=== PATIENT | male | born 1965 | race African-American/Black ===

== ENCOUNTER 2018-06-30 19:02 | Inpatient (IN) | payer OTHER ==
[2018-06-30 19:52] VITALS: BMI 30.4
--- NOTE | 2018-06-30 20:32 | HP ---
COWS - Scale Resting Pulse: 0= [place] 80 or Below Sweatin= Chills/Flushing Restless Observation: 1= Difficult to Sit Still Pupil Size: 1= Pupils >than Normal Bone or Joint Aches: 1= Mild Discomfort Runny Nose/ Eye Tearin= Runny Nose/Eyes GI Upset > 30mins: 1= Stomach Cramp Tremor Observation: 1= Tremor [place], Not Seen Yawning Observation: 2= >3x During Session Anxiety or Irritability: 2=Irritable/Anxious Goose Flesh Skin: 0=Smooth Skin COWS Score: 12 Admission [facility] Chief Complaint: opioid withdrawal symptoms Allergies/Adverse Reactions: Allergies Allergy/AdvReac Type Severity Reaction Status Date / Time No Known Allergies Allergy Verified 06/30/18 20:41 History of Present Illness: 52 yo male with hx of nicotine, crack/cocaine, THC, heroin (nasal) dependence is here seeking detox. Last detox 20 years ago. Reports left his [facility] at [facility] three months ago in which he was receiving 140 mg daily. PMHX: Pre- Diabetes, schizophrenia. Denies suicidal / homicidal ideation. Reports hx of blackouts with last episode two months ago. Denies hx of seizures or overdose. Longest period of sobriety 5 years while incarcerated. Exam Limitations: No Limitations - Ebola screening Have you traveled outside of the country in the last 21 days: No (N) Have you had contact with anyone from an Ebola affected area: No Have you been sick,other than usual withdrawal symptoms: No Do you have a fever: No - Review of Systems Constitutional: Chills, Loss of Appetite, Changes in sleep, Unintentional Wgt. Loss EENT: reports: Nose Congestion Respiratory: reports: No Symptoms reported Cardiac: reports: No Symptoms Reported GI: reports: Poor Appetite, Poor Fluid Intake, Indigestion : reports: No Symptoms Reported Musculoskeletal: reports: Joint Pain Integumentary: reports: No Symptoms Reported Neuro: reports: No Symptoms reported Endocrine: reports: Increased Thirst Hematology: reports: No Symptoms Reported Psychiatric: reports: Orientated x3, Agitated, Anxious Other Systems: Reviewed and Negative Patient History - Patient Medical History Hx Anemia: No Hx Asthma: No Hx Chronic Obstructive Pulmonary Disease (COPD): No Hx Cancer: No Hx Cardiac Disorders: No Hx Congestive Heart Failure: No Hx Hypertension: No Hx Hypercholesterolemia: No Hx Pacemaker: No HX Cerebrovascular Accident: No Hx Seizures: No Hx Dementia: No Hx Diabetes: Yes (Pre-Diabetes diet controlled ) Hx Gastrointestinal Disorders: No Hx Liver Disease: No Hx Genitourinary Disorders: No Hx Sexually Transmitted Disorders: Yes (Clamydia ) Hx Renal Disease (ESRD): No Hx Thyroid Disease: No Hx Human Immunodeficiency Virus (HIV): No (2014 negative ) Hx Hepatitis C: No Hx Depression: No Hx Suicide Attempt: No Hx Bipolar Disorder: No Hx Schizophrenia: Yes - Patient Surgical History Past Surgical History: No - PPD History Previous Implant?: No (tx with INH 2000) Documented Results: Positive w/o proof PPD to be Administered?: No - Smoking Cessation Smoking history: Current some day smoker Have you smoked in the past 12 months: Yes Aproximately how many cigarettes per day: 20 Hx Chewing Tobacco Use: No Initiated information on smoking cessation: Yes 'Breaking Loose' booklet given: 06/30/18 - Substance & Tx. History Hx Alcohol Use: No Hx Substance Use: Yes Substance Use Type: Cocaine, Heroin, Marijuana Hx Substance Use Treatment: Yes (20 years ) - Substances Abused Heroin Route: Inhalation Frequency: Daily Amount used: 1 bundle Age of first use: 17 Date of Last Use: 06/29/18 Crack Route: Smoking Frequency: Daily Amount used: $200 Age of first use: 21 Date of Last Use: 06/30/18 Marijuana/Hashish Route: Smoking Frequency: 1-2 times per week Amount used: 1/2 blunt Age of first use: 17 Date of Last Use: 06/23/18 Family Disease History - Family Disease History Family Disease History: Diabetes: Mother Admission Physical Exam [facility] - Vital Signs Vital Signs: Vital Signs - 24 hr 06/30/18 19:51 Temperature 98.2 F Pulse Rate 67 Respiratory 19 Rate Blood Pressure 132/70 - Physical General Appearance: Yes: Disheveled, Mild Distress, Irritable, Sweating HEENTM: Yes: EOMI, Hearing grossly Normal, Normal ENT Inspection, Normocephalic , Normal Voice, ANASTASIIA, Pharynx Normal, Tm's normal Respiratory: Yes: Within Normal Limits Neck: Yes: Within Normal Limits Breast: Yes: Breast Exam Deferred Cardiology: Yes: Regular Rhythm, Regular Rate Abdominal: Yes: Normal Bowel Sounds, Non Tender, Flat, Soft Genitourinary: Yes: Within Normal Limits Back: Yes: Normal Inspection Musculoskeletal: Yes: full range of Motion, Gait Steady, Pelvis Stable Neurological: Yes: oxygen system tester II-XII NML intact, Fully Oriented, Alert, Motor Strength 5/5, Depressed Affect Integumentary: Yes: Normal Color, Warm, Diaphoresis Lymphatic: Yes: Within Normal Limits - Diagnostic (1) Psychiatric disorder Current Visit: Yes Status: Suspected (2) Opioid dependence with withdrawal Current Visit: Yes Status: Acute (3) Cocaine dependence Current Visit: Yes Status: Acute Qualifiers: Substance use status: uncomplicated Qualified Code(s): F14.20 - Cocaine dependence, uncomplicated (4) Marijuana dependence Current Visit: Yes Status: Acute (5) Nicotine dependence Current Visit: Yes Status: Acute Qualifiers: Nicotine product type: cigarettes (6) History of tuberculosis exposure Current Visit: Yes Status: Chronic Comment: tx with INH 2001 (7) Prediabetes Current Visit: Yes Status: Chronic Cleared for Admission [facility] - Detox or Rehab [facility] Level of Care: Medically Managed Detox Regimen/Protocol: Methadone [facility] Breath Alcohol Content Breath Alcohol Content: 0 Urine Drug Screen - Results Drug Screen Negative: No Urine Drug Screen Results: LILLIANA-Cocaine, OPI-Opiates
[2018-06-30] MEDS ORDERED: METHADONE HCL 10 MG TABLET (FOR DETOX USE ONLY) PO ONE ×2 (20:41→23:00)
[2018-06-30] MEDS ORDERED: MAGNESIUM HYDROX 2400MG/30ML ORAL SUSPENSION 30 ML CUP PO PRN (20:41)
[2018-06-30] MEDS ORDERED: P-EPHED 60MG/TRIPROLIDI 2.5MG TABLET PO PRN (20:41)
[2018-06-30] MEDS ORDERED: MENTHOL/PHENOL 1 EACH UD MM PRN (20:41)
[2018-06-30] MEDS ORDERED: MAG HYDROX/AL HYDROX/SIMETH 30 ML UNIT-DOSE CUP PO PRN (20:41)
[2018-06-30] MEDS ORDERED: MAGNESIUM CITRATE 300 ML BOTTLE PO PRN (20:41)
[2018-06-30] MEDS ORDERED: ACETAMINOPHEN 325 MG TABLET (FP) PO PRN (20:41)
[2018-06-30] MEDS ORDERED: IBUPROFEN 400 MG TABLET (FP) PO PRN (20:41)
[2018-06-30] MEDS ORDERED: LOPERAMIDE HCL 2 MG CAPSULE PO PRN (20:41)
[2018-06-30] MEDS ORDERED: guaiFENesin/D-METHORPHAN HB 10 ML UNIT-DOSE CUPS PO PRN (20:41)
[2018-06-30] MEDS ORDERED: MELATONIN 5 MG TABLETS PO PRN (22:00)
[2018-06-30] MEDS: THIAMINE HCL 100 MG TABLET (FP) PO SCH (22:49)
[2018-06-30] MEDS: diazePAM 5 MG TABLET PO PRN (22:49)
[2018-07-01 02:56] LABS: URINE APPEARANCE CLEAR; URINE BILIRUBIN NEGATIVE (<2.0 mg/dL); URINE COLOR LTYELLOW; URINE GLUCOSE (UA) NEGATIVE (NEGATIVE); URINE KETONE NEGATIVE (NEGATIVE); URINE LEUK ESTERASE NEGATIVE (NEGATIVE); URINE NITRITE NEGATIVE (NEGATIVE); URINE PROTEIN NEGATIVE (NEGATIVE); URINE UROBILINOGEN NEGATIVE mg/dL (0.2-1.0)
--- NOTE | 2018-07-01 09:43 | PN ---
BHS COWS - Scale Resting Pulse: 0= [place] 80 or Below Sweatin= Chills/Flushing Restless Observation: 1= Difficult to Sit Still Pupil Size: 1= Pupils >than Normal Bone or Joint Aches: 1= Mild Discomfort Runny Nose/ Eye Tearin= Nasal Congestion GI Upset > 30mins: 1= Stomach Cramp Tremor Observation of Outstretched Hands: 1= Tremor [place], Not Seen Yawning Observation: 0= None Anxiety or Irritability: 1=Feels Anxious/Irritable Goose Flesh Skin: 0=Smooth Skin COWS Score: 8 BHS Progress Note (SOAP) Subjective: interrupted sleep, sweats, Objective: 07/01/18 09:38 Vital Signs Temperature 97.9 F 07/01/18 09:22 Pulse Rate 58 L 07/01/18 09:22 Respiratory Rate 18 07/01/18 09:22 Blood Pressure 144/86 07/01/18 09:22 O2 Sat by Pulse Oximetry (%) Laboratory Tests 06/30/18 07/01/18 22:57 08:00 POC Glucometer 80 Urine Color Ltyellow Urine Appearance Clear Urine pH 8.0 Ur Specific [place] 1.017 Urine Protein Negative Urine Glucose (UA) Negative Urine Ketones Negative Urine Blood Negative Urine Nitrite Negative Urine Bilirubin Negative Urine Urobilinogen Negative Ur Leukocyte Esterase Negative pending labs Assessment: 07/01/18 09:38 withdrawal sx's Plan: cont. detox increase fluids f/up pending labs
[2018-07-01] MEDS ORDERED: METHADONE HCL 10 MG TABLET (FOR DETOX USE ONLY) PO ONE (10:00)
--- NOTE | 2018-07-01 10:18 | CONSULT ---
[facility] Psychiatric Consult - Data Date of interview: 07/01/18 Admission source: [facility] Identifying data: Patient is a 52 year old male, father of two, domiciled, and unemployed (denies receiving financial assistance). This is patient's first admission to detox at [facility]. Pt. admitted to for alcohol, cocaine and opiate dependence. Substance Abuse History: - Smoking Cessation. Smoking history: Current some day smoker. Have you smoked in the past 12 months: Yes. Aproximately how many cigarettes per day: 20. Hx Chewing Tobacco Use: No. Initiated information on smoking cessation: Yes. 'Breaking Loose' booklet given: 06/30/18. - Substance & Tx. History. Hx Alcohol Use: No. Hx Substance Use: Yes. Substance Use Type : Cocaine, Heroin, Marijuana. Hx Substance Use Treatment: Yes (20 years ). - Substances Abused. Heroin. Route: Inhalation. Frequency: Daily. Amount used: 1 bundle. Age of first use: 17. Date of Last Use: 06/29/18. Crack. Route: Smoking. Frequency: Daily. Amount used: $200. Age of first use: 21. Date of Last Use: 06/30/18. Marijuana/Hashish. Route: Smoking. Frequency: 1-2 times per week. Amount used: 1/2 blunt. Age of first use: 17. Date of Last Use: 06/23/18 Medical History: diabetes Psychiatric History: Patient unable to provide a clear psychiatric history. Patient denies h/o psychiatric hospitalization. He reports being treated with abilify 20mg and Trazodone (unknown dose) while he was incarcerated from 2011- 2013. Mr. Collazo reports being diagnosed with paranoid schizophrenia 2 years ago (?). States he attempted to receive outpatient psychiatric care from [facility] five months ago but was told by the psychiatrist that due to his high dose of methadone he would not be started on psychotrophic medications. As per current orders patient is on a methadone taper. Mr. Clolazo is refusing to restart abilify but is agreeable to accepting trazodone for insomnia. Patient currently denies auditory/visual hallucinations but does report h/o auditory hallucinations when not using substances. No psychotic or manic symptoms noted. Physical/Sexual Abuse/Trauma History: denies. Mental Status Exam - Mental Status Exam Alert and Oriented to: Time, Place, Person Cognitive Function: Good Patient Appearance: Well Groomed Mood: Euthymic Affect: Mood Congruent Patient Behavior: Cooperative Speech Pattern: Appropriate Voice Loudness: Moderately Soft/Quiet Thought Process: Intact, Goal Oriented Thought Disorder: Not Present Hallucinations: Denies Suicidal Ideation: Denies Homicidal Ideation: Denies Insight/Judgement: Poor Sleep: Poorly Appetite: Fair Muscle strength/Tone: Normal Gait/Station: Normal Psychiatric Findings - Problem List ([place] 1, 2,3) (1) Nicotine dependence Current Visit: Yes Status: Chronic Qualifiers: Nicotine product type: cigarettes (2) Cocaine dependence Current Visit: Yes Status: Chronic Qualifiers: Substance use status: uncomplicated Qualified Code(s): F14.20 - Cocaine dependence, uncomplicated (3) Opioid dependence with withdrawal Current Visit: Yes Status: Acute (4) Substance induced mood disorder Current Visit: Yes Status: Acute (5) Substance-induced sleep disorder Current Visit: Yes Status: Acute (6) Schizophrenia Current Visit: No Status: Suspected - Initial Treatment Plan Initial Treatment Plan: Psychoeducation provided. Detoxification in progress. Will order trazodone 50mg qhs. Benefits and side effects discussed. Patient made aware of the risk of priapism when accepting trazodone. Verbal consent given.
[2018-07-01 10:22] LABS: HEMATOCRIT 43.9 % (35.4-49); HEMOGLOBIN 14.6 GM/dL (11.7-16.9); MCH 30.1 pg (25.7-33.7); MCHC 33.2 g/dl (32.0-35.9); MEAN CELL VOLUME 90.7 fl (80-96); MEAN PLT VOLUME 7.9 fl (7.5-11.1); PLATELET COUNT 214 K/MM3 (134-434); RBC 4.84 M/mm3 (4.00-5.60); RDW 14.5 % (11.9-15.9); WHITE BLOOD COUNT 6.3 K/mm3 (4.0-10.0)
[2018-07-01] MEDS: diazePAM 5 MG TABLET PO PRN ×2 (10:22→22:14)
[2018-07-01] MEDS: PRENATAL VITAMINS W/ FOLIC ACID TABLET (FP) PO SCH (10:22)
[2018-07-01 10:42] LABS: CHLORIDE 111 mmol/L (98-107); POTASSIUM 4.3 mmol/L (3.5-5.1); SODIUM 144 mmol/L (136-145)
[2018-07-01 11:23] LABS: ALBUMIN 3.2 g/dl (3.4-5.0); ALK PHOS 69 U/L (45-117); ANION GAP 6 MMOL/L (8-16); BILIRUBIN,TOTAL 0.6 mg/dL (0.2-1); BLOOD UREA NITROGEN 12 mg/dL (7-18); CALCIUM 8.7 mg/dL (8.5-10.1); CO2 27 mmol/L (21-32); CREATININE 1.2 mg/dL (0.55-1.3); GLUCOSE,RANDOM 82 mg/dL (74-106); SGOT/AST 19 U/L (15-37); SGPT/ALT 17 U/L (13-61); TOT PROT 6.2 g/dl (6.4-8.2)
--- NOTE | 2018-07-01 12:59 | EKG ---
Test Reason : Blood Pressure : / mmHG Vent. Rate : 062 BPM Atrial Rate : 062 BPM P-R Int : 160 ms QRS Dur : 076 ms QT Int : 392 ms P-R-T Axes : 063 058 032 degrees QTc Int : 397 ms NORMAL SINUS RHYTHM POSSIBLE LEFT ATRIAL ENLARGEMENT LEFT VENTRICULAR HYPERTROPHY ABNORMAL ECG NO PREVIOUS ECGS AVAILABLE Confirmed by BRADLEY LYON MD ([id number]) on 07/01/2018 12:59:00 PM Referred By: Confirmed By:BRADLEY LYON MD
[2018-07-01] MEDS: THIAMINE HCL 100 MG TABLET (FP) PO SCH (22:14)
[2018-07-01] MEDS: traZODone HCL 50 MG TABLET (FP) PO SCH (22:15)
[2018-07-02] MEDS ORDERED: METHADONE HCL 5 MG TABLET (FOR DETOX USE ONLY) PO ONE (10:00)
--- NOTE | 2018-07-02 10:41 | PN ---
BHS COWS - Scale Resting Pulse: 0= [place] 80 or Below Sweatin= Chills/Flushing Restless Observation: 1= Difficult to Sit Still Pupil Size: 1= Pupils >than Normal Bone or Joint Aches: 2= Severe Diffuse Aches Runny Nose/ Eye Tearin= Nasal Congestion GI Upset > 30mins: 1= Stomach Cramp Tremor Observation of Outstretched Hands: 2= Slight Tremor Visible Yawning Observation: 1= 1-2x During Session Anxiety or Irritability: 1=Feels Anxious/Irritable Goose Flesh Skin: 0=Smooth Skin COWS Score: 11 BHS Progress Note (SOAP) Subjective: body ache tremor sweat restlessness joints pain Objective: 07/02/18 10:40 Vital Signs Temperature 9707 F H 07/02/18 09:53 Pulse Rate 64 07/02/18 09:53 Respiratory Rate 18 07/02/18 09:53 Blood Pressure 144/79 07/02/18 09:53 O2 Sat by Pulse Oximetry (%) Laboratory Last Values WBC 6.3 K/mm3 (4.0-10.0) 07/01/18 07:00 RBC 4.84 M/mm3 (4.00-5.60) 07/01/18 07:00 Hgb 14.6 GM/dL (11.7-16.9) 07/01/18 07:00 Hct 43.9 % (35.4-49) 07/01/18 07:00 MCV 90.7 fl (80-96) 07/01/18 07:00 MCH 30.1 pg (25.7-33.7) 07/01/18 07:00 MCHC 33.2 g/dl (32.0-35.9) 07/01/18 07:00 RDW 14.5 % (11.9-15.9) 07/01/18 07:00 Plt Count 214 K/MM3 (134-434) 07/01/18 07:00 MPV 7.9 fl (7.5-11.1) 07/01/18 07:00 Sodium 144 mmol/L (136-145) 07/01/18 07:00 Potassium 4.3 mmol/L (3.5-5.1) 07/01/18 07:00 Chloride 111 mmol/L (98-107) H 07/01/18 07:00 Carbon Dioxide 27 mmol/L (21-32) 07/01/18 07:00 Anion Gap 6 MMOL/L (8-16) L 07/01/18 07:00 BUN 12 mg/dL (7-18) 07/01/18 07:00 Creatinine 1.2 mg/dL (0.55-1.3) 07/01/18 07:00 Creat Clearance w eGFR > 60 (>60) 07/01/18 07:00 POC Glucometer 94 UNITS (80-120) 07/02/18 06:43 Random Glucose 82 mg/dL (74-106) 07/01/18 07:00 Calcium 8.7 mg/dL (8.5-10.1) 07/01/18 07:00 Total Bilirubin 0.6 mg/dL (0.2-1) 07/01/18 07:00 AST 19 U/L (15-37) 07/01/18 07:00 ALT 17 U/L (13-61) 07/01/18 07:00 Alkaline Phosphatase 69 U/L (45-117) 07/01/18 07:00 Total Protein 6.2 g/dl (6.4-8.2) L 07/01/18 07:00 Albumin 3.2 g/dl (3.4-5.0) L 07/01/18 07:00 Urine Color Ltyellow 06/30/18 22:57 Urine Appearance Clear 06/30/18 22:57 Urine pH 8.0 (5.0-8.0) 06/30/18 22:57 Ur Specific [place] 1.017 (1.001-1.035) 06/30/18 22:57 Urine Protein Negative (NEGATIVE) 06/30/18 22:57 Urine Glucose (UA) Negative (NEGATIVE) 06/30/18 22:57 Urine Ketones Negative (NEGATIVE) 06/30/18 22:57 Urine Blood Negative (NEGATIVE) 06/30/18 22:57 Urine Nitrite Negative (NEGATIVE) 06/30/18 22:57 Urine Bilirubin Negative (<2.0 mg/dL) 06/30/18 22:57 Urine Urobilinogen Negative mg/dL (0.2-1.0) 06/30/18 22:57 Ur Leukocyte Esterase Negative (NEGATIVE) 06/30/18 22:57 RPR Titer Nonreactive (NONREACTIVE) 07/01/18 07:00 HIV 1&2 Antibody Screen Negative 07/01/18 07:00 HIV P24 Antigen Negative 07/01/18 07:00 lab noted Assessment: 07/02/18 10:40 withdrawal sx Plan: continue detox
[2018-07-02] MEDS: diazePAM 5 MG TABLET PO PRN ×2 (10:52→22:10)
[2018-07-02] MEDS: PRENATAL VITAMINS W/ FOLIC ACID TABLET (FP) PO SCH (10:52)
[2018-07-02] MEDS: THIAMINE HCL 100 MG TABLET (FP) PO SCH (22:09)
[2018-07-02] MEDS: traZODone HCL 50 MG TABLET (FP) PO SCH (22:09)
[2018-07-03] MEDS ORDERED: METHADONE HCL 5 MG TABLET (FOR DETOX USE ONLY) PO ONE (10:00)
[2018-07-03] MEDS: PRENATAL VITAMINS W/ FOLIC ACID TABLET (FP) PO SCH (10:14)
[2018-07-03] MEDS: diazePAM 5 MG TABLET PO PRN (10:14)
--- NOTE | 2018-07-03 10:51 | PN ---
[facility] Progress Note Note: PATIENT PRESENTS IN DETOX FOR OPIOD WITHDRAWAL. REPORTS HE FEEL OKAY THIS MORNING BUT "A LITTLE TIRED". Laboratory Tests 06/30/18 07/01/18 07/01/18 22:57 07:00 07:00 WBC 6.3 RBC 4.84 Hgb 14.6 Hct 43.9 MCV 90.7 MCH 30.1 MCHC 33.2 RDW 14.5 Plt Count 214 MPV 7.9 Sodium 144 Potassium 4.3 Chloride 111 H Carbon Dioxide 27 Anion Gap 6 L BUN 12 Creatinine 1.2 Creat Clearance w eGFR > 60 POC Glucometer Random Glucose 82 Calcium 8.7 Total Bilirubin 0.6 AST 19 ALT 17 Alkaline Phosphatase 69 Total Protein 6.2 L Albumin 3.2 L Urine Color Ltyellow Urine Appearance Clear Urine pH 8.0 Ur Specific [place] 1.017 Urine Protein Negative Urine Glucose (UA) Negative Urine Ketones Negative Urine Blood Negative Urine Nitrite Negative Urine Bilirubin Negative Urine Urobilinogen Negative Ur Leukocyte Esterase Negative RPR Titer HIV 1&2 Antibody Screen HIV P24 Antigen 07/01/18 07/01/18 07/01/18 07:00 07:00 08:00 WBC RBC Hgb Hct MCV MCH MCHC RDW Plt Count MPV Sodium Potassium Chloride Carbon Dioxide Anion Gap BUN Creatinine Creat Clearance w eGFR POC Glucometer 80 Random Glucose Calcium Total Bilirubin AST ALT Alkaline Phosphatase Total Protein Albumin Urine Color Urine Appearance Urine pH Ur Specific [place] Urine Protein Urine Glucose (UA) Urine Ketones Urine Blood Urine Nitrite Urine Bilirubin Urine Urobilinogen Ur Leukocyte Esterase RPR Titer Nonreactive HIV 1&2 Antibody Screen Negative HIV P24 Antigen Negative 07/02/18 07/03/18 06:43 06:57 WBC RBC Hgb Hct MCV MCH MCHC RDW Plt Count MPV Sodium Potassium Chloride Carbon Dioxide Anion Gap BUN Creatinine Creat Clearance w eGFR POC Glucometer 94 96 Random Glucose Calcium Total Bilirubin AST ALT Alkaline Phosphatase Total Protein Albumin Urine Color Urine Appearance Urine pH Ur Specific [place] Urine Protein Urine Glucose (UA) Urine Ketones Urine Blood Urine Nitrite Urine Bilirubin Urine Urobilinogen Ur Leukocyte Esterase RPR Titer HIV 1&2 Antibody Screen HIV P24 Antigen PE: ALERT AND ORIENTED SKIN WARM AND DRY CAR S1S2 RESP: CTA BL GI SOFT, BS+, NT A/P WITHDRAWAL SYNDROME CONTINUE DETOX PER PROTOCOL
[2018-07-03] MEDS: THIAMINE HCL 100 MG TABLET (FP) PO SCH (22:32)
[2018-07-03] MEDS: traZODone HCL 50 MG TABLET (FP) PO SCH (22:32)
[2018-07-04] MEDS ORDERED: METHADONE HCL 10 MG TABLET (FOR DETOX USE ONLY) PO ONE (10:00)
--- NOTE | 2018-07-04 10:15 | PN ---
BHS Progress Note (SOAP) Subjective: Interrupted sleep, muscle aches, irritability Objective: 07/04/18 10:15 Vital Signs - 8 hr 07/04/18 07/04/18 07/04/18 03:30 06:00 09:55 Temperature 97.3 F L 97.5 F L Pulse Rate 54 L 55 L Respiratory 18 18 16 Rate Blood Pressure 122/74 107/65 Laboratory Last Values WBC 6.3 K/mm3 (4.0-10.0) 07/01/18 07:00 RBC 4.84 M/mm3 (4.00-5.60) 07/01/18 07:00 Hgb 14.6 GM/dL (11.7-16.9) 07/01/18 07:00 Hct 43.9 % (35.4-49) 07/01/18 07:00 MCV 90.7 fl (80-96) 07/01/18 07:00 MCH 30.1 pg (25.7-33.7) 07/01/18 07:00 MCHC 33.2 g/dl (32.0-35.9) 07/01/18 07:00 RDW 14.5 % (11.9-15.9) 07/01/18 07:00 Plt Count 214 K/MM3 (134-434) 07/01/18 07:00 MPV 7.9 fl (7.5-11.1) 07/01/18 07:00 Sodium 144 mmol/L (136-145) 07/01/18 07:00 Potassium 4.3 mmol/L (3.5-5.1) 07/01/18 07:00 Chloride 111 mmol/L (98-107) H 07/01/18 07:00 Carbon Dioxide 27 mmol/L (21-32) 07/01/18 07:00 Anion Gap 6 MMOL/L (8-16) L 07/01/18 07:00 BUN 12 mg/dL (7-18) 07/01/18 07:00 Creatinine 1.2 mg/dL (0.55-1.3) 07/01/18 07:00 Creat Clearance w eGFR > 60 (>60) 07/01/18 07:00 POC Glucometer 90 UNITS (80-120) 07/04/18 05:57 Random Glucose 82 mg/dL (74-106) 07/01/18 07:00 Calcium 8.7 mg/dL (8.5-10.1) 07/01/18 07:00 Total Bilirubin 0.6 mg/dL (0.2-1) 07/01/18 07:00 AST 19 U/L (15-37) 07/01/18 07:00 ALT 17 U/L (13-61) 07/01/18 07:00 Alkaline Phosphatase 69 U/L (45-117) 07/01/18 07:00 Total Protein 6.2 g/dl (6.4-8.2) L 07/01/18 07:00 Albumin 3.2 g/dl (3.4-5.0) L 07/01/18 07:00 Urine Color Ltyellow 06/30/18 22:57 Urine Appearance Clear 06/30/18 22:57 Urine pH 8.0 (5.0-8.0) 06/30/18 22:57 Ur Specific [place] 1.017 (1.001-1.035) 06/30/18 22:57 Urine Protein Negative (NEGATIVE) 06/30/18 22:57 Urine Glucose (UA) Negative (NEGATIVE) 06/30/18 22:57 Urine Ketones Negative (NEGATIVE) 06/30/18 22:57 Urine Blood Negative (NEGATIVE) 06/30/18 22:57 Urine Nitrite Negative (NEGATIVE) 06/30/18 22:57 Urine Bilirubin Negative (<2.0 mg/dL) 06/30/18 22:57 Urine Urobilinogen Negative mg/dL (0.2-1.0) 06/30/18 22:57 Ur Leukocyte Esterase Negative (NEGATIVE) 06/30/18 22:57 RPR Titer Nonreactive (NONREACTIVE) 07/01/18 07:00 HIV 1&2 Antibody Screen Negative 07/01/18 07:00 HIV P24 Antigen Negative 07/01/18 07:00 Labs noted Assessment: 07/04/18 10:15 Withdrawal sx Plan: Continue detox
[2018-07-04] MEDS: PRENATAL VITAMINS W/ FOLIC ACID TABLET (FP) PO SCH (10:27)
[2018-07-04] MEDS: traZODone HCL 50 MG TABLET (FP) PO SCH (22:29)
[2018-07-04] MEDS: THIAMINE HCL 100 MG TABLET (FP) PO SCH (22:29)
[2018-07-05] MEDS ORDERED: METHADONE HCL 5 MG TABLET (FOR DETOX USE ONLY) PO ONE (06:00)
--- NOTE | 2018-07-05 08:36 | DS ---
[facility] Detox Discharge Summary Admission Date: 06/30/18 Discharge Date: 07/05/18 - History Present History: Opioid Dependence Additional Comments: 52 years old male admitted on 06/30 for opiate withdrawal sx completed opiate detox regimen tolerated well denies opiate withdrawal sx alert oriented x 3 no acute distress aftercare [facility] - Physical Exam Results Vital Signs: Vital Signs Temperature 98.1 F 07/05/18 06:00 Pulse Rate 59 L 07/05/18 06:00 Respiratory Rate 20 07/05/18 06:00 Blood Pressure 127/67 07/05/18 06:00 O2 Sat by Pulse Oximetry (%) Pertinent Admission Physical Exam Findings: opiate withdrawal sx Vital Signs Temperature 97.4 F L 07/05/18 09:34 Pulse Rate 67 07/05/18 09:34 Respiratory Rate 18 07/05/18 09:34 Blood Pressure 139/92 07/05/18 09:34 O2 Sat by Pulse Oximetry (%) Laboratory Last Values WBC 6.3 K/mm3 (4.0-10.0) 07/01/18 07:00 RBC 4.84 M/mm3 (4.00-5.60) 07/01/18 07:00 Hgb 14.6 GM/dL (11.7-16.9) 07/01/18 07:00 Hct 43.9 % (35.4-49) 07/01/18 07:00 MCV 90.7 fl (80-96) 07/01/18 07:00 MCH 30.1 pg (25.7-33.7) 07/01/18 07:00 MCHC 33.2 g/dl (32.0-35.9) 07/01/18 07:00 RDW 14.5 % (11.9-15.9) 07/01/18 07:00 Plt Count 214 K/MM3 (134-434) 07/01/18 07:00 MPV 7.9 fl (7.5-11.1) 07/01/18 07:00 Sodium 144 mmol/L (136-145) 07/01/18 07:00 Potassium 4.3 mmol/L (3.5-5.1) 07/01/18 07:00 Chloride 111 mmol/L (98-107) H 07/01/18 07:00 Carbon Dioxide 27 mmol/L (21-32) 07/01/18 07:00 Anion Gap 6 MMOL/L (8-16) L 07/01/18 07:00 BUN 12 mg/dL (7-18) 07/01/18 07:00 Creatinine 1.2 mg/dL (0.55-1.3) 07/01/18 07:00 Creat Clearance w eGFR > 60 (>60) 07/01/18 07:00 POC Glucometer 98 UNITS (80-120) 07/05/18 05:12 Random Glucose 82 mg/dL (74-106) 07/01/18 07:00 Calcium 8.7 mg/dL (8.5-10.1) 07/01/18 07:00 Total Bilirubin 0.6 mg/dL (0.2-1) 07/01/18 07:00 AST 19 U/L (15-37) 07/01/18 07:00 ALT 17 U/L (13-61) 07/01/18 07:00 Alkaline Phosphatase 69 U/L (45-117) 07/01/18 07:00 Total Protein 6.2 g/dl (6.4-8.2) L 07/01/18 07:00 Albumin 3.2 g/dl (3.4-5.0) L 07/01/18 07:00 Urine Color Ltyellow 06/30/18 22:57 Urine Appearance Clear 06/30/18 22:57 Urine pH 8.0 (5.0-8.0) 06/30/18 22:57 Ur Specific [place] 1.017 (1.001-1.035) 06/30/18 22:57 Urine Protein Negative (NEGATIVE) 06/30/18 22:57 Urine Glucose (UA) Negative (NEGATIVE) 06/30/18 22:57 Urine Ketones Negative (NEGATIVE) 06/30/18 22:57 Urine Blood Negative (NEGATIVE) 06/30/18 22:57 Urine Nitrite Negative (NEGATIVE) 06/30/18 22:57 Urine Bilirubin Negative (<2.0 mg/dL) 06/30/18 22:57 Urine Urobilinogen Negative mg/dL (0.2-1.0) 06/30/18 22:57 Ur Leukocyte Esterase Negative (NEGATIVE) 06/30/18 22:57 RPR Titer Nonreactive (NONREACTIVE) 07/01/18 07:00 HIV 1&2 Antibody Screen Negative 07/01/18 07:00 HIV P24 Antigen Negative 07/01/18 07:00 lab noted - Treatment Hospital Course: Detox Protocol Followed, Detoxed Safely, Responded well, Discharged Condition Good, Rehab Referral Accepted Patient has Accepted a Rehab Referral to: [facility] - Medication Discharge Medications: Ambulatory Orders NK [No Known Home Medication] 06/30/18 - Diagnosis (1) Opioid dependence with withdrawal Status: Acute (2) Cocaine dependence Status: Chronic Qualifiers: Substance use status: uncomplicated Qualified Code(s): F14.20 - Cocaine dependence, uncomplicated (3) Marijuana dependence Status: Chronic (4) Nicotine dependence Status: Acute Qualifiers: Nicotine product type: cigarettes Substance use status: in withdrawal Qualified Code(s): F17.213 - Nicotine dependence, cigarettes, with withdrawal (5) Schizophrenia Status: Suspected Qualifiers: Schizophrenia type: unspecified Qualified Code(s): F20.9 - Schizophrenia, unspecified - AMA Did Patient Leave Against Medical Advice: No
[2018-07-05 09:34] VITALS: BP 139/92; PULSE 67; TEMP 97.4
== END 2018-07-05 10:03 | disposition home or self-care (01) | DRG 773 ==
LOC: YASAS 19:02 → Y6N 20:17
PROC: HZ2ZZZZ Detoxification Services for Substance Abuse Treatment (ICD-10-PCS; principal; 2018-06-30)
DX: F11.23 Opioid dependence with withdrawal (principal); F14.20 Cocaine dependence, uncomplicated; F12.20 Cannabis dependence, uncomplicated; F17.213 Nicotine dependence, cigarettes, with withdrawal; F20.9 Schizophrenia, unspecified; F19.24 Other psychoactive substance dependence with psychoactive substance-induced mood disorder; F19.282 Other psychoactive substance dependence with psychoactive substance-induced sleep disorder; R73.03 Prediabetes; Z20.1 Contact with and (suspected) exposure to tuberculosis; Z86.19 Personal history of other infectious and parasitic diseases
CPT/HCPCS: 36415; 71046-TC-FY; 80053; 81003; 82962; 85027; 86593; 87389; 93005; 93010